=== PATIENT | female | born 1960 | race Caucasian/White ===

== ENCOUNTER 2020-03-13 12:55 | Emergency (ER) | payer OTHER, SELFPAY ==
--- NOTE | ~2020-03-13 | XR_ITS ---
EXAMINATION: XR elbow RT min 3V DATE: 03/13/2020 13:34 INDICATION: Right elbow pain and deformity post fall TECHNIQUE: Anteroposterior, two oblique and lateral views of the right elbow were obtained. COMPARISON: None. FINDINGS: Oblique extra articular supracondylar fracture of the distal right humerus which extends from the med ial side of the metadiaphysis distal and laterally to the region of the lateral epicondyle where ther e appears to be some mild comminution. 15 degrees medial angulation. There is approximately 1 cm prox imal migration along the axis of the oblique fracture plane. Normal alignment and joint spaces within the elbow joint space proper. No elbow joint effusion. Soft tissue swelling about the distal upper a rm. IMPRESSION: 1. Mild medial angulation and 1 cm proximal migration along an oblique extra articular supracondylar fracture of the distal right humerus. Reviewed, dictated and finalized at location A. IMPRESSION: 1. Mild medial angulation and 1 cm proximal migration along an oblique extra ar ticular supracondylar fracture of the distal right humerus.
[2020-03-13 13:06] VITALS: BP 140/75; PULSE 76; RESP 21; TEMP 36.6; O2SAT 100
--- NOTE | 2020-03-13 13:21 | ED.UPPEXIN ---
HPI - Extremity Injury (Upper) General Chief Complaint: Extremity Injury, Upper Stated Complaint: R arm injury Time Seen by Provider: 03/13/20 13:16 History of Present Illness HPI narrative: Fall on outstretched right arm this morning. Instant pain and deformity to the right arm proximal to the elbow. Pain is worse with movement. Distal motor and sensation intact. No additional injuries. Related Data Home Medications Medication Instructions Recorded Confirmed No Home Medications 03/13/20 03/13/20 Allergies Allergy/AdvReac Type Severity Reaction Status Date / Time No Known Allergies Allergy Verified 03/13/20 13:10 Review of Systems Review of Systems: All systems reviewed & are unremarkable except as noted in HPI and below Constitutional: Constitutional: Denies fever(s) ENT: Denies sore throat Cardiovascular: Cardiovascular: Denies chest pain Respiratory: Respiratory: Denies dyspnea Gastrointestinal: Gastrointestinal: Denies abdominal pain Musculoskeletal: Musculoskeletal: Denies back pain Neurologic: Denies numbness and Denies weakness PMF Social History Social History (Updated 03/13/20 @ 16:25 by Demarcus Reeves MD) Smoking status: Never smoker Gender identity (if verbalized by the patient): Female Exam Const: General: healthy appearing, no acute distress and alert Orientation/consciousness: patient oriented x3 HENMT: Head: normal to inspection Resp: Effort & Inspection: normal respiratory effort Cardio: Other: 2+ right radial pulse Skin: General skin exam: normal color Wounds: no wounds Neuro: General: patient oriented x3, moves all extremities, no focal motor deficits and CN's II-XI intact bilaterally Speech: normal speech Extrem: Other: deformity and tenderness proximal to right elbow. Distal motor and sensory intact. Course Vital Signs Vital signs: Vital Signs Temperature 36.6 C 03/13/20 13:06 Pulse Rate 76 03/13/20 13:06 Respiratory Rate 21 H 03/13/20 13:06 Blood Pressure 140/75 03/13/20 13:06 Pulse Oximetry 100 03/13/20 13:06 Temperature 36.6 C 03/13/20 13:06 Pulse Rate 94 03/13/20 17:18 Respiratory Rate 18 03/13/20 17:18 Blood Pressure 110/67 03/13/20 17:18 Pulse Oximetry 97 03/13/20 17:18 MDM - Extremity Injury (Upper) MDM Narrative Medical decision making narrative: She has a displaced and angulated supracondylar humerus fracture. Images discussed with Dr Can and he recommends transfer. Transfer arranged to [place]. Discharge Plan Discharge Clinical Impression: Supracondylar fracture of humerus Qualifiers: Encounter type: initial encounter Fracture type: closed Laterality: right Qualified Code(s): S42.411A - Displaced simple supracondylar fracture without intercondylar fracture of right humerus, initial encounter for closed fracture Patient Disposition: Acute Care Hospital Condition: Stable Prescriptions: No Action No Home Medications RF: 0 Follow-up/Referrals: PHYSICIAN,MARKETING ACCOUNT MANAGER [Primary Care Provider] - Discharge Date/Time: 03/13/20 17:19
[2020-03-13] MEDS: MORPHINE SULFATE 4 MG/ML INJ IV PUSH ×2 (13:38→16:56)
[2020-03-13 15:20] VITALS: BP 146/79; PULSE 86; RESP 18; O2SAT 98
[2020-03-13 16:13] VITALS: BP 148/95; PULSE 106; RESP 20; O2SAT 97
[2020-03-13 17:03] VITALS: BP 110/67; PULSE 94; RESP 18; O2SAT 95
[2020-03-13 17:18] VITALS: BP 110/67; PULSE 94; RESP 18; O2SAT 97
== END 2020-03-13 17:19 | disposition short-term general hospital (02) ==
PROVIDERS: Emergency Provider Emergency Medicine
DX: S42.411A Displaced simple supracondylar fracture without intercondylar fracture of right humerus, initial encounter for closed fracture (principal); W19.XXXA Unspecified fall, initial encounter
CPT/HCPCS: 73080; 96374; 96376; 99285; A4565; J2270

== ENCOUNTER 2021-06-26 08:36 | Emergency (ER) | payer OTHER, SELFPAY ==
[2021-06-26 09:08] VITALS: PULSE 70; RESP 14; O2SAT 97
[2021-06-26 09:18] VITALS: BP 139/80; PULSE 86; RESP 14; TEMP 36.9; O2SAT 99
[2021-06-26 09:32] VITALS: BP 110/81; PULSE 70; RESP 14; O2SAT 97
[2021-06-26 09:54] VITALS: PULSE 62; RESP 12; O2SAT 97
[2021-06-26 10:15] VITALS: PULSE 64; RESP 14; O2SAT 99
[2021-06-26 10:16] VITALS: BP 114/80; PULSE 67; RESP 14; O2SAT 99
--- NOTE | 2021-06-26 10:33 | ED.FEMALEGU ---
HPI - Female Genitourinary General Chief complaint: MEDICAL BILLER/CODER Stated complaint: Uterine prolapse? Time Seen by Provider: 06/26/21 08:53 Source: patient Mode of arrival: ambulatory Limitations: no limitations History of Present Illness HPI Narrative: This is a 61-year-old female that presents to the emergency department for uterine prolapse. Reports recently she has noted especially when she has a bowel movement that she can feel a bulge in her vagina. She has an appointment to see a apricot washer next week, but was unsure if she could wait until then. No difficulty with urinating or having bowel movements. She has had 1 vaginal delivery. Denies fever or dysuria. Related Data Home Medications Medication Instructions Recorded Confirmed No Home Medications 03/13/20 03/13/20 Allergies Allergy/AdvReac Type Severity Reaction Status Date / Time No Known Allergies Allergy Verified 03/13/20 13:10 Review of Systems Review of Systems: CONSTITUTIONAL: Denies fever GENITOURINARY: Denies dysuria SKIN: Denies rash All systems reviewed & are unremarkable except as noted in HPI and below PMFSH Past Medical History Medical History (Updated 06/26/21 @ 10:40 by Chante Edgar PA-C) No active medical problems Social History Social History (Updated 03/13/20 @ 16:25 by Demarcus Reeves MD) Smoking status: Never smoker Gender identity (if verbalized by the patient): Female Exam Narrative: GENERAL: Well-appearing, well-nourished, and in no acute distress. HEAD: Normocephalic, atraumatic. EYES: EOMI. CHEST: Clear to auscultation. No respiratory distress. No wheezes rales or rhonchi HEART: Regular rate and rhythm. No murmur heard. Normal peripheral pulses. EXTREMITIES: Normal range of motion. No edema. SKIN: Warm, dry, no rash. NEURO: No focal deficits. Alert and oriented x3. PSYCH: Normal mood and affect FEMALE GENITAL: Prolapse of the anterior vaginal wall to the level of the introitus. Course Vital Signs Vital signs: Vital Signs Temperature 98.5 F 06/26/21 09:18 Pulse Rate 86 06/26/21 09:18 Respiratory Rate 14 06/26/21 09:18 Blood Pressure 139/80 06/26/21 09:18 Pulse Oximetry 99 06/26/21 09:18 Temperature 98.5 F 06/26/21 09:18 Pulse Rate 86 06/26/21 09:18 Respiratory Rate 14 06/26/21 09:18 Blood Pressure 139/80 06/26/21 09:18 Pulse Oximetry 99 06/26/21 09:18 MDM - Female Genitourinary MDM Narrative Medical decision making narrative: Patient presents to the emergency department for pelvic organ prolapse. She does have prolapse of the anterior vaginal wall to the level of the introitus with bearing down. Instructed on measures to take until she follows up with her apricot washer next week. She was given warnings to return to the ER Critical Care Time Critical Care Time Critical Care Time: No Discharge Plan Discharge Clinical Impression: Prolapse of female pelvic organs Qualifiers: Prolapse type: unspecified female genital prolapse Qualified Code(s): N81.9 - Female genital prolapse, unspecified Patient Disposition: Home, Self-Care Condition: Stable Instructions: Uterine Prolapse (ED) Additional Instructions: Return to the emergency department if you experience fever, abdominal pain with nausea and vomiting, you are unable to urinate or have a bowel movement, or any other symptoms that are concerning to you Keep the area clean. Try to avoid straining and heavy lifting. Light duty at work Follow-up with your apricot washer at your scheduled appointment. Dr. Dez Vasquez specializes in pelvic organ prolapse if needed Prescriptions: No Action No Home Medications RF: 0 Follow-up/Referrals: Dez Vasquez MD [Physician] - 1 Week PHYSICIAN,HAND OR MACHINE PASTER [Primary Care Provider] - Stand Alone Forms: Work/School Release IP
== END 2021-06-26 10:50 | disposition home or self-care (01) ==
PROVIDERS: Emergency Provider Emergency Medicine
DX: N81.10 Cystocele, unspecified (principal)
CPT/HCPCS: 99281

== ENCOUNTER 2022-08-16 13:45 | Outpatient (CLI) | payer OTHER, SELFPAY ==
--- NOTE | 2022-08-16 15:00 | ECG_ITS ---
Measurements Intervals [place] Rate: 80 P: 5 IN: 154 QRS: -26 QRSD: 85 T: -9 QT: 352 QTc: 406 Interpretive Statements SINUS RHYTHM POOR R-WAVE PROGRESSION, CANNOT RULE OUT OLD ANTERIOR DE BASELINE ARTIFACT NO PREVIOUS ECG AVAILABLE FOR COMPARISON Electronically Signed On 08-17-2022 13:10:22 CDT by Alisha Ramírez M.D.
[2022-08-16 16:01] LABS: Basophils Absolute Auto 0.1 K/mm3 (0.0-0.1); Basophils Percent Auto 0.6 % (0.2-1.2); Eosinophils Absolute Auto 0.1 K/mm3 (0-0.3); Eosinophils Percent Auto 0.9 % (0-4.4); Hematocrit 44.6 % (37.0-47.0); Hemoglobin 15.6 g/dL (12.0-15.0); Immature Granulocyte Absolute 0.03 K/mm3 (0.00-0.031); Immature Granulocyte Percent A 0.3 % (0-0.5); Lymphocytes Absolute Auto 2.15 K/mm3 (0.9-3.2); Lymphocytes Percent Auto 24.3 % (18.3-44.2); Mean Corpuscular Hemoglobin 32.8 pg (26-34); Mean Corpuscular Volume 93.9 fl (80-100); Mean Platelet Volume 10.7 fl (7.4-10.4); Monocytes Absolute Auto 0.6 K/mm3 (0.1-0.6); Monocytes Percent Auto 6.6 % (2.6-8.5); Neutrophils Percent Auto 67.3 % (45.5-73.1); Platelet Count Result 281 k/mm3 (150-375); Red Blood Count 4.75 M/mm3 (4.2-5.4); Red Cell Distribution Width 12.4 % (11.5-14.5); White Blood Count 8.8 K/mm3 (4.5-10.0)
[2022-08-16 16:14] LABS: Alanine Aminotransferase 16 U/L (6-35); Albumin Level 4.4 g/dL (3.5-5.1); Alkaline Phosphatase 81 U/L (38-126); Anion Gap 12 mmol/L (8-16); Aspartate Amino Transferase 27 U/L (14-36); Bilirubin,Total 0.4 mg/dL (0.2-1.3); Blood Urea Nitrogen 17 mg/dL (7-17); Calcium 9.4 mg/dL (8.4-10.2); Carbon Dioxide 29 mmol/L (22-30); Chloride 100 mmol/L (98-107); Estimated Glomerular Filt Rate > 60; Glucose 88 mg/dL (65-110); Potassium 3.9 mmol/L (3.4-5.0); Prothrombin Time 12.8 Seconds (11.1-14.7); Sodium 141 mmol/L (137-145)
[2022-08-16 16:15] LABS: Partial Thromboplastin Time 32.4 SECONDS (22.3-36.8)
== END 2022-08-16 13:46 | disposition home or self-care (01) ==
PROVIDERS: Visit Provider Urology
DX: Z01.818 Encounter for other preprocedural examination (principal); N81.4 Uterovaginal prolapse, unspecified
CPT/HCPCS: 36415; 80053; 85025; 85610; 85730; 87086; 87088; 93005

== ENCOUNTER 2022-08-30 00:06 | Day surgery (SDC) | payer OTHER, SELFPAY ==
[2022-08-16 14:00] VITALS: BMI 27.1
--- NOTE | 2022-08-16 14:26 | PC.NURSE ---
Report to the Outpatient Waiting Room, entrance under the green pavilion located off [facility], at time _0600 on date __08/30/22 . OR Time: ___729 . Time changes happen often and if your time is changed the preop area will call you the afternoon before. - You and your visitor will be asked to self-screen and do not enter if you have any COVID symptoms. - We encourage only one visitor and NO visitors under age 16 are allowed at this time. Your visitor will receive communication by the phone number that is given day of service. - The patient visitor is requested to social distance or may leave the building when not with patient due to restrictions. - A mask is required within the hospital. Patients may have clear liquids (water, carbonated beverages, clear teas, apple juice) until 3 hours prior to surgery with a maximum of 20 ounces. - No food from midnight until time of surgery - Infants may have breast milk until 4 hours before surgery, infant formula 6 hours prior to surgery. - Children will be allowed to drink immediately following surgery. If applicable, please bring a bottle or sippy cup to assist with drinking. Juice, water, soda, and popsicles are readily available. For infants on formula, please bring formula the day of surgery. Pacifiers are allowed. Take the following medications with a SIP of water the morning of surgery: ___NONE Medications to discontinue per physician VITAMIN C 3 DAYS PRE OP Date to take last dose_08/26/22 Please no make-up, nail yakut, hairspray, perfume, deodorant, or body powder the day of surgery. No jewelry (including any body piercings) or valuables the day of surgery, leave them at home. Please take a shower or bath the night before, or the morning of, surgery with an antibacterial soap. Wear comfortable, loose fitting clothing. Children are encouraged to wear pajamas. - Jewelry must be removed prior to entering the operating room. Rings and piercings that are not removed may be cut off. - The hospital will not accept responsibility for valuables. - Please leave all valuables, including medications, at home the day of surgery. If you are going home after surgery, a licensed car driver must drive you home. - NO public transportation without another adult. - We recommend that an adult stay with you for 24 hours following discharge. - We also recommend that you do not drive, make important decision, drink alcoholic beverages, or take any drugs that were not prescribed by your health care provider for at least 24 hours after your discharge time. For Pediatric surgeries, we recommend two adults accompany the child home. Follow any additional instructions given to you from your surgeon. If you or anyone in your household have experienced Covid symptoms in the past week, please notify your surgeon or the nurse liaison at the phone number below for possible testing. VERBAL AND WRITTEN instructions given to ___PATIENT and asked if any additional questions and then verbalized understanding. Patient advised to call surgeon office or pre surgery nurse liaison [phone] if any additional questions.
[2022-08-16 15:01] VITALS: BP 155/81; PULSE 91; RESP 18; TEMP 37.4; O2SAT 99
--- NOTE | 2022-08-22 15:59 | PM.IMHP ---
H&P: HPI History of Present Illness Date/Time: 08/22/22 15:59 Chief Complaint: pelvic organ prolapse Narrative: 62-year-old with pelvic organ prolapse. She is no longer able to manage her pessary to her automotive brake adjuster strength. She does not have urinary incontinence. She presents for surgical intervention. of note she is a Christian and will not accept blood products Review of Systems Review of Systems: All systems reviewed & are unremarkable except as noted in HPI and below PMFSH Past Medical History Medical History No active medical problems Social History Social History Smoking status: Never smoker Gender identity (if verbalized by the patient): Female Spiritual care concerns: Yes (JEHOVAH WITNESS) Meds Home Medications and Allergies Home Medications Medication Instructions Recorded Confirmed Type ascorbic acid (vitamin C) 2,000 mg 2,000 mg PO DAILY 08/16/22 08/16/22 History tablet,extended release fexofenadine 180 mg tablet 180 mg PO DAILY 08/16/22 08/16/22 History Allergies Allergy/AdvReac Type Severity Reaction Status Date / Time No Known Allergies Allergy Verified 08/16/22 14:01 Exam Narrative: no acute distress normal breathing prolapse with loss of apical support alert orient x3 Assessment and Plan Assessment and plan (1) Uterine prolapse: Code(s): N81.4 - Uterovaginal prolapse, unspecified Status: Acute Assessment and Plan: robotic colpopexy. Risks of bleeding, infection, recurrence, mesh exposure, postoperative voiding dysfunction, postoperative retention or incontinence, dyspareunia discussed. She will not accept blood products.
[2022-08-30] VITALS (10 sets, daily range): BP systolic 98–139; BP diastolic 48–71; PULSE 47–89; RESP 10–17; TEMP 36.4–37.2; O2SAT 96–100; BMI 26.6
--- NOTE | 2022-08-30 07:13 | WPDHPUPDATE1 ---
History and Physical Update Update Date/Time: 08/30/22 07:13 History and Physical has been reviewed, including an updated exam of the patient. There are NO changes in the patient's condition. Risks, benefits, and alternatives have been discussed and questions answered. Patient agrees to proceed with procedure.
--- NOTE | 2022-08-30 07:16 | WPDHPUPDATE1 ---
History and Physical Update Update Date/Time: 08/30/22 07:16 History and Physical has been reviewed, including an updated exam of the patient. There are NO changes in the patient's condition. Risks, benefits, and alternatives have been discussed and questions answered. Patient agrees to proceed with procedure.
[2022-08-30] MEDS: LACTATED RINGERS 1,000 ML 30 ML IV CONT ×2 (07:17→10:45)
--- NOTE | 2022-08-30 07:20 | PM.IMHP ---
H&P: HPI History of Present Illness Date/Time: 08/30/22 07:20 Chief Complaint: Pelvic organ prolapse Narrative: this patient is a 62-year-old female with a pelvic organ prolapse. We have agreed to perform laparoscopic supracervical hysterectomy bilateral salpingo-oophorectomy. This will be done in conjunction with Dr. Vasquez who is performing a robotic sacrocolpopexy. She understands the surgery has risks. She understands injuries may occur that resultant hospitalization, more surgery, severe illness. She understands the risk of hemorrhage and infection. Review of Systems Review of Systems: All systems reviewed & are unremarkable except as noted in HPI and below Constitutional: Constitutional: Denies chills, Denies fatigue, Denies fever(s) and Denies weakness Eyes: Eyes: Denies blurry vision, Denies change in vision, Denies loss of peripheral vision, Denies loss of vision, Denies other visual disturbances and Denies eye pain ENT: Denies vertigo, Denies dizziness, Denies hearing loss, Denies mouth pain, Denies nasal obstruction, Denies neck mass and Denies neck pain Cardiovascular: Cardiovascular: Denies chest pain, Denies diaphoresis, Denies syncope, Denies leg edema and Denies dyspnea Respiratory: Respiratory: Denies chest congestion, Denies cough, Denies hemoptysis, Denies dyspnea and Denies wheezing Gastrointestinal: Gastrointestinal: Denies abdominal pain, Denies constipation, Denies diarrhea, Denies nausea and Denies vomiting Genitourinary: Genitourinary: Denies hematuria, Denies change in libido, Denies nocturia, Denies genital lesions, Denies flank pain and Denies urinary urgency Musculoskeletal: Musculoskeletal: Denies abnormal gait, Denies back pain, Denies myalgias, Denies arthralgias, Denies joint swelling, Denies muscle weakness and Denies neck pain Integumentary/Breasts: Skin/Breast: Denies swelling, Denies breast pain, Denies breast mass, Denies dry skin, Denies nipple discharge, Denies unusual bruising and Denies jaundice Neurologic: Denies Neuro-related abnormal movements, Denies Abnormal speech present, Denies abnormal gait, Denies behavioral changes, Denies confusion, Denies vertigo, Denies dizziness, Denies syncope, Denies loss of vision, Denies memory loss, Denies convulsions and Denies weakness Psychiatric: Psychiatric: Denies abnormal sleep pattern, Denies behavioral changes, Denies change in libido, Denies confusion, Denies depression, Denies anhedonia and Denies memory loss Endocrine: Endocrine: Reports no additional endocrine complaints, Denies change in libido and Denies fatigue Hematologic/Lymphatic: Hematologic/Lymphatic: Reports no additional hematologic/lymphatic complaints Allergic/Immunologic: Allergic/Immunologic: Reports no additional allergic/immunologic complaints and Denies wheezing PMFSH Past Medical History Medical History No active medical problems Surgical History Surgical History (Updated 08/30/22 @ 07:27 by Andrew Rollins MD) H/O elbow surgery H/O sinus surgery Social History Social History Smoking status: Never smoker Living arrangements: alone Gender identity (if verbalized by the patient): Female Spiritual care concerns: Yes (JEHOVAH WITNESS) Meds Home Medications and Allergies Home Medications Medication Instructions Recorded Confirmed Type ascorbic acid (vitamin C) 2,000 mg 2,000 mg PO DAILY 08/16/22 08/30/22 History tablet,extended release fexofenadine 180 mg tablet 180 mg PO DAILY 08/16/22 08/16/22 History docusate sodium 100 mg capsule 100 mg PO BID #60 caps 08/30/22 Rx (Colace) hydrocodone 5 mg-acetaminophen 325 1 tablet PO Q6H PRN pain #20 tabs 08/30/22 Rx mg tablet Allergies Allergy/AdvReac Type Severity Reaction Status Date / Time No Known Allergies Allergy Verified 08/30/22 07:07 Vital Signs Vital Signs -
[2022-08-30] MEDS: ACETAMINOPHEN 500 MG TABLET 1000 MG PO (07:21)
[2022-08-30] MEDS: KETOROLAC 15 MG/ML VIAL (*BKC) IV PUSH ×2 (07:22→15:04)
--- NOTE | 2022-08-30 07:26 | WPDANESEPPF ---
Anes - Initial Pre Proc Eval Procedure: Operation Date: 08/30/22 07:30 Proposed Procedures p Robotic Sacrocolpopexy, Urethral Sling, - Dez Vasquez MD s Robotic Assisted Laparoscopic Supracervical Hysterectomy with Bilateral Salpingo-Oophorectomy - Jadon Demarco MD Date/Time: 08/30/22 07:26 Surgeon: Dez Vasquez MD Pre Op Diagnosis: cystocele, incomp uterovag prolapse, stress incont Patient Data Age: 62 Gender: F Height: 1.59 m Weight: 67.15 kg Last Vital Signs Temp 36.6 C 08/30/22 06:30 Pulse 89 08/30/22 06:30 Resp 16 08/30/22 06:30 BP 139/71 08/30/22 06:30 Pulse Ox 100 08/30/22 06:30 O2 Del Method Room Air 08/30/22 06:30 Allergies Allergy/AdvReac Type Severity Reaction Status Date / Time No Known Allergies Allergy Verified 08/30/22 07:07 Home Medications Medication Instructions Recorded Confirmed Type ascorbic acid (vitamin C) 2,000 mg 2,000 mg PO DAILY 08/16/22 08/30/22 History tablet,extended release fexofenadine 180 mg tablet 180 mg PO DAILY 08/16/22 08/16/22 History Patient hx anesthesia problems: none Family hx anesthesia problems: none Results Review: All pre-operative results and documents have been reviewed as part of the pre-operative evaluation. [facility] Past Medical History Medical History (Updated 08/30/22 @ 07:27 by Andrew Rollins MD) No active medical problems Overweight Surgical History Surgical History (Updated 08/30/22 @ 07:27 by Andrew Rollins MD) H/O elbow surgery H/O sinus surgery Social History Social History Smoking status: Never smoker Living arrangements: alone Gender identity (if verbalized by the patient): Female Spiritual care concerns: Yes (JEHOVAH WITNESS) Anes - Eval Final PreProcedure Day of Procedure 08/30/22 07:26 Patient weight: overweight Heart: regular rate and rhythm Lungs: clear to auscultation Airway: Mallampati scale class II Neurological: alert and oriented Last oral intake: >/= 8 hours ASA classification: II Emergent: no Anesthetic plan: proceed Anesthesia type and monitoring: general ETT and standard monitoring Results Review: All pre-operative results and documents have been reviewed as part of the pre-operative evaluation. Informed Consent: The patient's anesthetic plan and its attendant risks and benefits were discussed with the patient/family/POA. Questions were solicited and answers provided to the satisfaction of the patient/family/POA.
[2022-08-30] MEDS: ceFAZolin 2 GM/D5W 50 ML 2 GM/50 ML BAG IVPB (07:35)
[2022-08-30] MEDS: metroNIDAZOLE 500 MG/ISO 100ML 500 MG/100 ML BAG 100 MG IVPB ×2 (07:56→16:19)
--- NOTE | 2022-08-30 09:13 | W.PM.PROC2 ---
Procedure Note - Detailed Date of Procedure 08/30/22 Pre-op Diagnosis cystocele, incomp uterovag prolapse, stress incont Post-op Diagnosis Same Procedure Performed laparoscopic supracervical hysterectomy and bilateral salpingo-oophorectomy. Surgeon Jadon Demarco MD Anesthesia General Indications pelvic organ prolapse Findings small uterus, normal appearing ovaries and normal-appearing tubes. Description of Procedure This patient was taken to the operating room. She was prepped and draped in the dorsal lithotomy position after induction of general anesthesia. a tenaculum was applied to the vaginal mucosa at the cervicovaginal juncture posteriorly. This was done with a speculum and tenaculum. The speculum was placed. The cervix was grasped with a tenaculum. Trocars were placed by Dr. Vasquez. The location of the ureters was identified at the pelvic brim. The ovaries were grasped and raised. The infundibulopelvic ligaments were cauterized and transected with LigaSure cautery. This was all done in a bilateral fashion. The para ovarian tissue was cauterized and transected with LigaSure cautery bilaterally. Moving around the ovary into the broad ligament the tissue was cauterized transected with LigaSure cautery. The round ligaments were cauterized transected with LigaSure cautery this was all done in a bilateral fashion. In a stepwise fashion along the lateral aspects of the uterus the round ligament and broad ligaments were cauterized transected down to the level of the uterine arteries. The cervix was transected using unipolar cautery. The uterus and bilateral tubes and ovaries were laid off to the side for Dr. Vasquez to remove later. The remainder of the procedure was performed by Dr. Vasquez again he finished the surgery. Estimated Blood Loss 10 Drains Yes Packing No Pathology Yes Complications No immediate complications Condition Stable Disposition Floor
--- NOTE | 2022-08-30 10:41 | W.PM.PROC2 ---
Procedure Note - Detailed Date of Procedure 08/30/22 Pre-op Diagnosis cystocele, uterine prolapse Post-op Diagnosis Same Procedure Performed Robotic assisted laparoscopic sacral colpopexy Cystoscopy Surgeon Dez Vasquez MD Anesthesia General Indications a woman with uterine prolapse without stress incontinence. She desires surgical correction. She is here for the above. She understands risks of bleeding, infection, diskitis, damage to surrounding organs, bowel injury, bowel obstruction, mesh related complications including exposure and extrusion, postoperative voiding dysfunction including incontinence and retention, need for ancillary procedures, dyspareunia, recurrence of prolapse, and other perioperative intraoperative postoperative complications. She agrees to proceed. she understands the risk of postoperative stress incontinence. She has used a pessary in the past, but is not able to manipulate her pessary anymore due to mobility issues with her hand of note she is a Christian and will not accept blood products Findings uncomplicated sacral colpopexy Description of Procedure She was correctly identified. Informed consent obtained. She from the operating room. She was given general anesthesia. She was given appropriate perioperative antibiotics. She was placed a low lithotomy position. Pressure points were padded. A time-out performed. I marked out the skin 3 fingerbreadths cephalad to the umbilicus. I anesthetized the skin. I incised the skin. I dissected down to the fascia. I grasped the fascia with Leo clamps. I entered the fascia sharply in a Matthew type technique. I placed sutures for later fascial closure. I placed a midline trocar. I examined the abdomen. There is no sign of any injury. Under direct vision I placed 2 additional trocars in the right upper quadrant and 2 additional trocars the left upper quadrant. She was placed in steep Trendelenburg. The robot was docked. Her radio dispatcher completed their portion of the procedure. Please see that operative report for details. I then sat at the console. The Sizer in the vagina created plane on the anterior and posterior vaginal wall. I took great care not to injure the vagina, bladder, or rectum. I introduced the mesh into the abdomen. I sewed the anterior leaflet of mesh on the anterior vaginal wall. I sewed the posterior leaflet of mesh on the posterior vaginal wall. This was done with several sutures of 2 0 Slaughter-Philip. 9 on each side. I reflected the colon laterally. I opened the posterior peritoneum over the sacral promontory. I carried this into the cul-de-sac. I freed up the edges for later retroperitonealization. I located the anterior longitudinal ligament the sacrum. I cleaned off all fatty tissues. I then tensioned my mesh appropriately. I did a vaginal exam the bedside. I assured prolapse reduction without undue tension. I then sewed the proximal leaflet of mesh onto the anterior longitudinal ligament of the sacrum with 4l sutures of 2 0 Slaughter-Philip. I then used a 2 0 Monocryl to completely and meticulously retroperitonealized all mesh. I allowed the colon to go back to its normal anatomic location. There is no sign of any impingement. The specimen was then removed. All ports removed. Fascia was tied down. Additional sutures placed To close the fascia. Skin was closed with Monocryl and surgical glue. She was repositioned for cystoscopy. There was no tumors or surgical artifact. Both ureters were seen to excrete clear yellow urine. There is no surgical artifact in the bladder or urethra. I cut the excess sling material. Close incision with glue. She was awakened and transferred to PACU in stable condition. Implants Sacral colpopexy mesh Urethral sling Estimated Blood Loss 10 Packing No Pathology None sent Complications No immediate complications Condition Stable Disposition PACU
--- NOTE | 2022-08-30 12:13 | ADMGEN ---
This patient, Winsome Neal, was admitted to OB 2nd Floor Room 289-00. Patient/family oriented to hospital policies and general routines including ID bracelet, bed and alarms, visiting hours, pain management, procedures, bathroom and other care routines, personal items, smoking policy, room service/diet, and visiting hours. Information on how to activate the Rapid Response Team has been discussed. Patient/Family are encouraged to report perceived risks to care and to ask questions if they do not understand what they are told or what they should do.
[2022-08-30] MEDS: KCL 20 MEQ/D5/0.45% SOD CHL 1,000 ML 100 ML IV CONT (12:36)
[2022-08-30] MEDS: DOCUSATE SODIUM 100 MG CAPSULE PO (16:19)
[2022-08-30] MEDS: HYDROcodone/acetaminophen (*CRX) 5-325 MG TABLET 1 TAB PO (22:04)
[2022-08-31] VITALS: BP 100/56; PULSE 82; RESP 18; TEMP 36.6; O2SAT 99
[2022-08-31] MEDS: metroNIDAZOLE 500 MG/ISO 100ML 500 MG/100 ML BAG 100 MG IVPB ×2 (00:40→08:00)
[2022-08-31] MEDS: HYDROcodone/acetaminophen (*CRX) 5-325 MG TABLET 1 TAB PO ×2 (04:28→09:30)
[2022-08-31] MEDS: SIMETHICONE 80 MG TAB.CHEW PO ×2 (04:28→10:07)
[2022-08-31 04:30] VITALS: BP 102/55; PULSE 79; RESP 18; TEMP 37.1; O2SAT 98
[2022-08-31 07:35] VITALS: BP 101/53; PULSE 78; RESP 16; TEMP 36.8; O2SAT 96
[2022-08-31] MEDS: LORATADINE 10 MG TABLET PO (10:00)
[2022-08-31] MEDS: KETOROLAC 15 MG/ML VIAL (*BKC) IV PUSH (10:04)
[2022-08-31] MEDS: DOCUSATE SODIUM 100 MG CAPSULE PO (10:05)
== END 2022-08-31 11:05 | disposition home or self-care (01) ==
LOC: ANHSURGERY 07:29 → ANHOB2 12:12
PROVIDERS: Obstetrics & Gynecology; Visit Provider Urology
PROC: (CPT 57425; principal; 2022-08-30 07:30)
PROC: 0UT94ZZ Resection of Uterus, Percutaneous Endoscopic Approach (ICD-10-PCS; CPT 57425; 2022-08-30 07:30)
DX: N81.4 Uterovaginal prolapse, unspecified (principal); N80.00 Endometriosis of the uterus, unspecified; D25.9 Leiomyoma of uterus, unspecified; N83.8 Other noninflammatory disorders of ovary, fallopian tube and broad ligament
CPT/HCPCS: 57425; 58542; S2900; 36415; 80053; 85025; 85610; 85730; 87086; 87088; 88307; 93005; 99199; A9270; C1781; C9290; J0690; J1100; J1170; J1885; J2250; J2370; J2704; J2710; J3010; J3480; J7030; J7120